=== PATIENT | female | born 1975 | race Caucasian/White ===

== ENCOUNTER → 2017-06-24 | Outpatient (CLI) | payer BC, OTHER ==
[~2017-06-24] MED LIST: ACHYD1T PO; BIRTH CONTROL; CYAN100021 PO; DEXL60CA PO; Docusate Sodium PO; FISH1CAP15 PO; Ibuprofen PO; LVT.088T PO; NEXIUM PO; SCR1T1 PO
--- NOTE | 2017-06-24 19:25 | Diagnostic Imaging Report ---
EXAMINATION: Digital mammogram bilateral screening. INDICATION: Screening. COMPARISON: This study was compared to the prior exam of 01/08/2012. At this time, there are no current complaints. The current study was also evaluated with a Computer Aided Detection (CAD) system. FINDINGS: The fibroglandular tissue in both breasts is heterogeneously dense. This does limit the sensitivity of this exam. Overall, there does not appear to have been any significant change when compared to the prior study. No primary or secondary sign of malignancy is noted. IMPRESSION: There is no radiographic evidence for malignancy. ACR BI-RADS Category 1: Negative. Result letter will be mailed to the patient. Note: At least 10% of breast cancer is not imaged by mammography. Dictated by: Dictated on workstation # [id number]
== END ==
LOC: RAD 08:47
PROVIDERS: ATTEND Obstetrics & Gynecology
DX: Z12.31 Encounter for screening mammogram for malignant neoplasm of breast (principal)
CPT/HCPCS: 77067

== ENCOUNTER 2018-12-24 11:22 | Emergency (ER) | payer BC, OTHER ==
[~2018-12-24] VITALS: Ht 175 cm; Wt 107.0 kg
[2018-12-24 11:44] LABS: BASOPHILS % (AUTO) 0 % (0-10); EOSINOPHILS # (AUTO) 0.1 10^3/uL (0.0-0.3); EOSINOPHILS % (AUTO) 1 % (0-10); HEMATOCRIT 39 % (35-52); HEMOGLOBIN 13.2 G/DL (11.5-16.0); LYMPHOCYTES # (AUTO) 2.4 X 10^3 (1.0-4.0); LYMPHOCYTES % (AUTO) 35 % (12-44); MEAN CORPUSCULAR HEMOGLOBIN 30 PG (25-34); MEAN CORPUSCULAR HGB CONC 34 G/DL (32-36); MEAN CORPUSCULAR VOLUME 87 FL (80-99); MONOCYTES # (AUTO) 0.4 X 10^3 (0.0-1.0); MONOCYTES % (AUTO) 6 % (0-12); NEUTROPHILS # (AUTO) 3.9 X 10^3 (1.8-7.8); NEUTROPHILS % (AUTO) 58 % (42-75); PLATELET COUNT 320 10^3/uL (130-400); RED CELL DISTRIBUTION WIDTH 13.2 % (10.0-14.5); WHITE BLOOD COUNT 6.8 10^3/uL (4.3-11.0)
[2018-12-24] MEDS ORDERED: ASPIRIN 81 MG CHEW (CHILDREN'S ASA) PO ONE (11:45)
[2018-12-24 11:57] LABS: INR 0.9 (0.8-1.4)
[2018-12-24] MEDS ORDERED: NITROGLYCERIN 0.4 MG SL TABS BTL 25'S SL PRN (12:00)
[2018-12-24 12:06] LABS: ALANINE AMINOTRANSFERASE 15 U/L (0-55); ALBUMIN 4.3 GM/DL (3.2-4.5); ALKALINE PHOSPHATASE 76 U/L (40-136); BILIRUBIN,TOTAL 0.5 MG/DL (0.1-1.0); BUN/CREATININE RATIO 16; CALCIUM 9.7 MG/DL (8.5-10.1); CARBON DIOXIDE 22 MMOL/L (21-32); CHLORIDE 107 MMOL/L (98-107); CREATININE SERUM 0.77 MG/DL (0.60-1.30); GFR ESTIMATED > 60; GLUCOSE 98 MG/DL (70-105); MAGNESIUM 1.8 MG/DL (1.6-2.4); POTASSIUM 3.7 MMOL/L (3.6-5.0); SODIUM 141 MMOL/L (135-145); TOTAL PROTEIN 7.2 GM/DL (6.4-8.2)
--- NOTE | 2018-12-24 12:06 | ED Chest Pain ---
General Chief Complaint: Chest Pain Stated Complaint: HIGH BP;CHEST TIGHTNESS Nursing Triage Note: PT AMBULATE TO ROOM 06 WITHOUT DIFFICULTY WITH C/O CHEST PAIN AND HYPTERTENSION STARTING TODAY. PT STATES TINGLING DOWN LEFT ARM. Nursing Sepsis Screen: No Definite Risk Source: patient Exam Limitations: no limitations History of Present Illness Date Seen by Provider: Dec 24, 2018 Time Seen by Provider: 12:04 Initial Comments To ER with reports of chest tightness in the left upper chest and high blood pressure. She wasn't feeling well at school today, had the school nurse check it and found her blood pressure to be in the 150s over 90s. She called her primary care provider who referred her to the emergency room. She also notes that [place] about [address] [place], typically walks to school and today was unusually short of breath with exertion. Strong family history of heart disease, father at the age of early 50s there's of heart troubles. She is a nonsmoker, nondiabetic, has normal cholesterol. Timing/Duration: changing over time Severity/Quality: moderate Location: central Radiation: no radiation Activities at Onset: none ASA po PULLMAN CONDUCTOR: No NTG SL PULLMAN CONDUCTOR: No Associated Symptoms: shortness of breath (with exertion) Allergies and Home Medications Allergies Coded Allergies: Penicillins (Verified Allergy, Severe, STOPPED BREATHING, 03/20/14) Home Medications Cyanocobalamin 1,000 Mcg/15 Ml Oral.susp, 1,000 MCG PO DAILY, (Reported) Hydrocodone Bit/Acetaminophen 1 Ea Tab, 1-2 EA PO Q4H PRN for PAIN Prescribed by: SANDHYA RAMOS on 03/23/14740 Levothyroxine Sodium 88 Mcg Tablet, 1 EACH PO DAILY, (Reported) [Docusate Sodium] 100 MG CAP, 100 MG PO BID Prescribed by: SANDHYA RAMOS on 03/23/14740 [Ibuprofen] 800 MG TAB, 800 MG PO Q6HR Prescribed by: SANDHYA RAMOS on 03/23/14740 [Nexium] , 30 MG PO DAILY, (Reported) Patient Home Medication List Home Medication List Reviewed: Yes Review of Systems Review of Systems Constitutional: see HPI EENTM: No Symptoms Reported Respiratory: No Symptoms Reported Cardiovascular: See HPI, Chest Pain Gastrointestinal: See HPI, Abdominal Pain Genitourinary: No Symptoms Reported Musculoskeletal: no symptoms reported Skin: no symptoms reported Psychiatric/Neurological: No Symptoms Reported Endocrine: No Symptoms Reported Hematologic/Lymphatic: No Symptoms Reported Past Ikrnkkz-Gqscra-Natlqt Hx Patient Social History Alcohol Use: Occasionally Uses Recreational Drug Use: No Smoking Status: Never a Smoker 2nd Hand Smoke Exposure: No Recent Foreign Travel: No Contact w/Someone Who Travel: No Recent Infectious Disease Expo: No Recent Hopitalizations: No Physical Abuse: No Sexual Abuse: No Mistreated: No Fear: No Immunizations Up To Date Date of Influenza Vaccine: Mar 13, 2014 Seasonal Allergies Seasonal Allergies: No Past Medical History Surgeries: Yes Appendectomy, Gallbladder Respiratory: No Cardiac: No Neurological: No Female Reproductive Disorders: Endometriosis Sexually Transmitted Disease: No Genitourinary: No Gastrointestinal: Yes Polyps, Hiatal Hernia Musculoskeletal: No Endocrine: Yes Hypothyroidsim HEENT: No Cancer: No Psychosocial: No Integumentary: No Blood Disorders: Yes (NOSE BLEEDS EASY) Physical Exam Vital Signs Vital Signs - First Documented 12/24/18 11:31 Temp 37.2 Pulse 86 Resp 18 B/P (MAP) 176/96 (122) Pulse Ox 96 O2 Delivery Room Air Capillary Refill : Less Than 3 Seconds Height, Weight, BMI Height: 5'10.00" Weight: 235lbs. oz. 106.831360gr; 34.00 BMI Method: General Appearance: No Apparent Distress, WD/WN, Other (Alert and oriented very pleasant) HEENT: PERRL/EOMI, TMs Normal Neck: Full Range of Motion, Normal Inspection Respiratory: Normal Breath Sounds, No Accessory Muscle Use, No Respiratory Distress Cardiovascular: Regular Rate, Rhythm, Normal Peripheral Pulses Gastrointestinal: Non Tender, Soft Neurologic/Psychiatric: Alert, Oriented x3 Skin: Normal Color, Warm/Dry Progress/Results/Core Measures Results/Orders Lab Results Laboratory Tests Test 12/24/18 11:36 12/24/18 13:31 Range/Units White Blood Count 6.8 4.3-11.0 10^3/uL Red Blood Count 4.44 4.35-5.85 10^6/uL Hemoglobin 13.2 11.5-16.0 G/DL Hematocrit 39 35-52 % Mean Corpuscular Volume 87 80-99 FL Mean Corpuscular Hemoglobin 30 25-34 PG Mean Corpuscular Hemoglobin Concent 34 32-36 G/DL Red Cell Distribution Width 13.2 10.0-14.5 % Platelet Count 320 130-400 10^3/uL Mean Platelet Volume 10.0 7.4-10.4 FL Neutrophils (%) (Auto) 58 42-75 % Lymphocytes (%) (Auto) 35 12-44 % Monocytes (%) (Auto) 6 0-12 % Eosinophils (%) (Auto) 1 0-10 % Basophils (%) (Auto) 0 0-10 % Neutrophils # (Auto) 3.9 1.8-7.8 X 10^3 Lymphocytes # (Auto) 2.4 1.0-4.0 X 10^3 Monocytes # (Auto) 0.4 0.0-1.0 X 10^3 Eosinophils # (Auto) 0.1 0.0-0.3 10^3/uL Basophils # (Auto) 0.0 0.0-0.1 10^3/uL Prothrombin Time 13.0 12.2-14.7 SEC INR Comment 0.9 0.8-1.4 Activated Partial Thromboplast Time 25 24-35 SEC D-Dimer 0.37 0.00-0.49 UG/ML Sodium Level 141 135-145 MMOL/L Potassium Level 3.7 3.6-5.0 MMOL/L Chloride Level 107 98-107 MMOL/L Carbon Dioxide Level 22 21-32 MMOL/L Anion Gap 12 5-14 MMOL/L Blood Urea Nitrogen 12 7-18 MG/DL Creatinine 0.77 0.60-1.30 MG/DL Estimat Glomerular Filtration Rate > 60 BUN/Creatinine Ratio 16 Glucose Level 98 70-105 MG/DL Calcium Level 9.7 8.5-10.1 MG/DL Corrected Calcium 9.5 8.5-10.1 MG/DL Magnesium Level 1.8 1.6-2.4 MG/DL Total Bilirubin 0.5 0.1-1.0 MG/DL Aspartate Amino Transf (AST/SGOT) 14 5-34 U/L Alanine Aminotransferase (ALT/SGPT) 15 0-55 U/L Alkaline Phosphatase 76 40-136 U/L Myoglobin 31.3 10.0-92.0 NG/ML Troponin I < 0.028 < 0.028 <0.028 NG/ML B-Type Natriuretic Peptide 40.3 <100.0 PG/ML Total Protein 7.2 6.4-8.2 GM/DL Albumin 4.3 3.2-4.5 GM/DL My Orders Orders - SHIRA WHITE ADMINISTRATIVE RESIDENT Cbc With Automated Diff (12/24/18 11:38) Magnesium (12/24/18 11:38) Chest 1 View, Ap/Pa Only (12/24/18 11:38) Ekg Tracing (12/24/18 11:38) Cardiac Profile 1 (12/24/18 11:38) Comprehensive Metabolic Panel (12/24/18 11:38) Myoglobin Serum (12/24/18 11:38) Protime With Inr (12/24/18 11:38) Partial Thromboplastin Time (12/24/18 11:38) O2 (12/24/18 11:38) Monitor-Rhythm Ecg Trace Only (12/24/18 11:38) Ed Iv/Invasive Line Start (12/24/18 11:38) BNP (12/24/18 11:38) Fibrin Degradation Products (12/24/18 11:38) Aspirin Chewable Tablet (Baby Aspirin Ch (12/24/18 11:45) Nitroglycerin 0.4 Mg Btl 25's (Nitrostat (12/24/18 12:00) Troponin I (12/24/18 13:15) Ekg Tracing (12/24/18 13:15) Medications Given in ED Current Medications Medications Dose Ordered Sig/Nils Route Start Time Stop Time Status Last Admin Dose Admin Aspirin 324 mg ONCE ONCE PO 12/24/18 11:45 12/24/18 11:46 DC 12/24/18 11:44 324 MG Nitroglycerin 1 TAB Q 5 MIN X 3 NEEDED PRN SL 12/24/18 12:00 12/24/18 15:01 DC 12/24/18 11:53 0.4 MG Vital Signs/I&O 12/24/18 12/24/18 12/24/18 11:31 11:36 14:59 Temp 37.2 Pulse 86 87 Resp 18 19 B/P (MAP) 176/96 (122) 148/85 Pulse Ox 96 100 O2 Delivery Room Air Room Air Room Air Blood Pressure Mean: 122 Departure Communication (Admissions) 1207-she was given aspirin and 1 sublingual nitroglycerin on arrival, the nitroglycerin did help alleviate the pressure on the left side of her chest. 1223-start score is 3, low risk. Impression Primary Impression: Chest pain Qualified Codes: R07.9 - Chest pain, unspecified Disposition: 01 HOME, SELF-CARE Condition: Stable Departure-Patient Inst. Decision time for Depature: 14:22 Referrals: HOA NICHOLS MD FACP [facility] Chelsey COELHO MD, BASHAR J MD TANG, WEN-CHOU MD (PCP/Family) Primary Care Physician Patient Instructions: Chest Pain (DC) Add. Discharge Instructions: 1. Call a public welfare worker your choosing on Thursday to make an appointment to be seen. I spoke with Dr. Coelho and he would be happy to see you. All discharge instructions reviewed with patient and/or family. Voiced understanding. Copy Copies To 1: Chelsey COELHO MD, PETER J APRN Dec 24, 2018 12:06
--- NOTE | 2018-12-24 12:11 | Diagnostic Imaging Report ---
INDICATION: Hypertension, chest tightness. COMPARISON: 05/05/2012. FINDINGS: The lungs are clear. The heart and vessels are normal. There is no effusion or pneumothorax. IMPRESSION: No acute-appearing abnormality. Dictated by: Dictated on workstation # [id number]
[2018-12-24 14:59] VITALS: BP 148/85
== END 2018-12-24 15:01 | disposition home or self-care (01) ==
LOC: EDUNIT# 11:22 → ER 11:23
DX: R07.9 Chest pain, unspecified (principal); I10 Essential (primary) hypertension; E03.9 Hypothyroidism, unspecified; Z88.0 Allergy status to penicillin; Z90.49 Acquired absence of other specified parts of digestive tract
CPT/HCPCS: 36415; 71045; 80053; 83735; 83874; 83880; 84484; 85025; 85379; 85610; 85730; 93005; 93041

== ENCOUNTER → 2018-12-30 | Outpatient (CLI) | payer BC ==
[~2018-12-30] MED LIST changes: +REGADENOSON 0.4 MG/5 ML SYR (LEXISCAN) IV ONE
[2018-12-30] MEDS: CATHETER FLUSH 10 ML SYR IV PRN ×3 (08:47→09:53)
[2018-12-30 09:38] VITALS: BP 141/82
--- NOTE | 2018-12-30 15:47 | Cardiology Stress Test Report ---
Stress Test Report Type of NM Stress Test: Test Type: LEXISCAN 0.4MG/5ML Date of Procedure/Referring: Date of Procedure: Dec 30, 2018 PCP Jeff Cornelius Aprn Admitting Physician Kera Alcaraz MD Indications: Chest pain Baseline Heart Rate: 66 Baseline Blood Pressure: Blood Pressure Systolic: 141 Blood Pressure Diastolic: 82 Baseline EKG: Baseline EKG: sinus rhythm Summary & Conclusion: Summary: The patient was brought to the stress lab after informed consent was taken. Stress test was performed according to the Lexiscan protocol. 0.4 mg of IV Lexiscan was given. Low-grade exercise was performed. Baseline EKG showed sinus rhythm at 66 BPM. Initial blood pressure was 141/82 mmHg. Maximum heart rate was 127 bpm and blood pressure 171/112 mmHg. Patient did not have any chest pain, arrhythmias or ST segment changes during the stress test. 10.71 mCi of Myoview were given for rest imaging and 30.1 mCi of Myoview given for stress imaging. Transient ischemic dilatation score 0.98, EF 62 percent. Normal wall motion. Normal myocardial perfusion imaging during rest and stress. Conclusion: Pharmacological stress test was negative for ischemia. Normal LV function with no wall motion abnormalities. Normal myocardial perfusion imaging during rest and stress. Chelsey PRICE MD Dec 30, 2018 15:47
== END ==
LOC: CARD 08:12
PROVIDERS: ATTEND Nurse Practitioner Family
DX: I34.0 Nonrheumatic mitral (valve) insufficiency (principal)
CPT/HCPCS: 78452; 93017; 93306

== ENCOUNTER 2020-04-09 05:34 | Outpatient (RCR) | payer BC ==
[~2020-04-09] VITALS: Ht 172.7 cm; Wt 111.9 kg
[~2020-04-09 05:34] MED LIST changes: -REGADENOSON 0.4 MG/5 ML SYR (LEXISCAN) IV ONE
[2020-04-09 09:33] LABS: BASOPHILS % (AUTO) 0 % (0-10); EOSINOPHILS # (AUTO) 0.1 10^3/uL (0.0-0.3); EOSINOPHILS % (AUTO) 1 % (0-10); HEMATOCRIT 37 % (35-52); HEMOGLOBIN 12.5 g/dL (11.5-16.0); LYMPHOCYTES # (AUTO) 4.1 10^3/uL (1.0-4.0); LYMPHOCYTES % (AUTO) 40 % (12-44); MEAN CORPUSCULAR HEMOGLOBIN 31 pg (25-34); MEAN CORPUSCULAR HGB CONC 34 g/dL (32-36); MEAN CORPUSCULAR VOLUME 92 fL (80-99); MEAN PLATELET VOLUME 10.3 fL (9.0-12.2); MONOCYTES # (AUTO) 0.6 10^3/uL (0.0-1.0); MONOCYTES % (AUTO) 6 % (0-12); NEUTROPHILS # (AUTO) 5.2 10^3/uL (1.8-7.8); NEUTROPHILS % (AUTO) 52 % (42-75); PLATELET COUNT 251 10^3/uL (130-400); WHITE BLOOD COUNT 10.1 10^3/uL (4.3-11.0)
[2020-04-09 09:50] LABS: BUN/CREATININE RATIO 21; CALCIUM 8.6 MG/DL (8.5-10.1); CARBON DIOXIDE 26 MMOL/L (21-32); CHLORIDE 110 MMOL/L (98-107); CREATININE SERUM 0.61 MG/DL (0.60-1.30); GFR ESTIMATED > 60; GLUCOSE 90 MG/DL (70-105); POTASSIUM 3.5 MMOL/L (3.6-5.0); SODIUM 142 MMOL/L (135-145)
[2020-04-09 10:48] VITALS: BP 130/81
[2020-04-09] MEDS ORDERED: NF-ESOM40C PO (10:56)
[2020-04-09] MEDS ORDERED: PROG100C11 PO (10:56)
[2020-04-09] MEDS ORDERED: CARV3.122 PO (10:56)
[2020-04-09] MEDS ORDERED: LIOT5TAB10 PO (10:56)
[2020-04-09] MEDS ORDERED: FLUT9.9S NS (10:56)
[2020-04-09] MEDS ORDERED: LEVO50TA6 PO (10:56)
[2020-04-09] MEDS ORDERED: CETI10TA49 PO (10:56)
[2020-04-09] MEDS ORDERED: BENA10TA66 PO (10:56)
[2020-04-09] MEDS ORDERED: CHOL200014 PO (10:56)
[2020-04-09] MEDS ORDERED: FOLI200T11 PO (10:56)
[2020-04-09] MEDS ORDERED: ESTR1PAT91 TD (10:56)
[2020-04-09] MEDS ORDERED: ASCO-262 PO (10:56)
[2020-04-10] MEDS ORDERED: ACHD5005 PO (12:33)
[2020-04-10] MEDS ORDERED: LEVO500T80 PO (12:33)
[2020-04-10] MEDS ORDERED: PRD20T PO (12:33)
== END 2020-04-09 10:56 | disposition home or self-care (01) ==
LOC: PREOP 05:34
PROVIDERS: ATTEND Otolaryngology Otolaryngology/Facial Plastic Surgery
DX: Z01.812 Encounter for preprocedural laboratory examination (principal); J32.9 Chronic sinusitis, unspecified; J34.2 Deviated nasal septum; J34.3 Hypertrophy of nasal turbinates; Z20.828 Contact with and (suspected) exposure to other viral communicable diseases
CPT/HCPCS: 80048; 85025; 87081; U0002; 36415; 87635

== ENCOUNTER 2020-04-10 08:37 | Day surgery (SDC) | payer BC ==
[~2020-04-10] VITALS: Ht 172.7 cm; Wt 111.9 kg
[2020-04-10] VITALS (11 sets, daily range): BP systolic 118–151; BP diastolic 64–99
[~2020-04-10 08:37] MED LIST changes: +ASCO-262 PO; +BENA10TA66 PO; +CARV3.122 PO; +CETI10TA49 PO; +CHOL200014 PO; +ESTR1PAT91 TD; +FLUT9.9S NS; +FOLI200T11 PO; +LEVO50TA6 PO; +LIOT5TAB10 PO; +NF-ESOM40C PO; +PROG100C11 PO
[2020-04-10] MEDS ORDERED: LEVOFLOXACIN 500 MG/100 ML IV 100 ML IV ONE (08:45)
[2020-04-10] MEDS ORDERED: COCAINE HCL 4% 2 ML SYR ONE (08:51)
[2020-04-10] MEDS ORDERED: BSS 15 ML ONE (08:51)
[2020-04-10] MEDS ORDERED: PHENYLEPHRINE 0.5% NASAL SPR (NEO-SYNEPHRINE) REG ONE (08:52)
[2020-04-10] MEDS ORDERED: LIDOCAINE/EPI 1%-1:100,000 (XYLOCAINE) 50 ML ONE (08:52)
--- NOTE | 2020-04-10 08:57 | Progress Note-Pre Operative ---
Pre-Operative Progress Note H&P Reviewed The H&P was reviewed, patient examined and no changes noted. Date Seen by Provider: Apr 10, 2020 Time Seen by Provider: 09:00 Date H&P Reviewed: Apr 10, 2020 Time H&P Reviewed: 09:00 Pre-Operative Diagnosis: Bilat Chronic Sinusitis, Dev Septum, Bilat Hyper of Inf Turbs JOSH RÍOS MD Apr 10, 2020 08:57
[2020-04-10] MEDS ORDERED: FAMOTIDINE 20MG/2ML IV (PEPCID) IV ONE (09:00)
[2020-04-10] MEDS ORDERED: ONDANSETRON 4 MG/2 ML (SDV) Z0FRAN IV ONE (09:00)
[2020-04-10] MEDS ORDERED: SCOPOLAMINE 1.5 MG (TRANSDERM-SCOP) PATCH TOP ONE (09:00)
[2020-04-10] MEDS ORDERED: proPOfol 200 MG/20 ML (DIPRIVAN) VIAL IV ONE (09:01)
[2020-04-10] MEDS ORDERED: NEOSTIGMINE 3 MG/3 ML VIAL ONE (09:01)
[2020-04-10] MEDS ORDERED: ROCURONIUM 10 MG/ML 5 ML SYRINGE IV ONE (09:01)
[2020-04-10] MEDS ORDERED: LIDOCAINE PF 2% 5 ML (XYLOCAINE) VIAL ONE (09:01)
[2020-04-10] MEDS ORDERED: fentaNYL INJECTION 100 MCG/2 ML AMP ONE (09:01)
[2020-04-10] MEDS ORDERED: SEVOFLURANE (ULTANE) 15 ML INHAL SOLN ONE ×5 (09:01→11:30)
[2020-04-10] MEDS ORDERED: GLYCOPYRROLATE 0.2 MG/ML (ROBINUL) 2 ML VIAL ONE (09:01)
[2020-04-10] MEDS ORDERED: ONDANSETRON 4 MG/2 ML (SDV) Z0FRAN ONE (09:01)
[2020-04-10] MEDS ORDERED: MIDAZOLAM 2 MG/2 ML (VERSED) VIAL ONE (09:02)
[2020-04-10] MEDS ORDERED: HYDROCORTISONE 100 MG/2 ML (Solu-CORTEF) VIAL ONE (10:04)
--- NOTE | 2020-04-10 10:05 | NUR ---
SOLUCORTEF 100MG IV GIVEN TO PT. IN OR PER DR. RÍOS.
[2020-04-10] MEDS ORDERED: HYDROmorphone 2 MG/ML VIAL (DILAUDID) ONE (10:33)
--- NOTE | 2020-04-10 11:21 | Progress Note-Post Operative ---
Post-Operative Progess Note Surgeon (s)/Help Desk Supervisor (s) Surgeon JOSH RÍOS MD Help Desk Supervisor n/a Pre-Operative Diagnosis Bilat Chronic Sinusitis, Dev Septum, Bilat Hyper of Inf Turbs Post-Operative Diagnosis same Post-Op Procedure Note Date of Procedure: Apr 10, 2020 Name of Procedure Performed: Bilat ESS, Nasal Septoplaty, Bilat Red of Inf Turbs Description & Findings Description and Findings: n/a Anesthesia Type get Estimated Blood Loss minimal Packing none. Specimen(s) collected/removed bilat Chronic sinus disease, nasal septum JOSH RÍOS MD Apr 10, 2020 11:21
[2020-04-10] MEDS ORDERED: D5 1/2 NS W/KCL 20 MEQ/L 1,000 ML IV SCH (11:30)
[2020-04-10] MEDS ORDERED: HYDROcodone/APAP 5 MG/325 MG (LORTAB) TAB PO PRN (11:30)
[2020-04-10] MEDS ORDERED: ACETAMINOPHEN 325 MG TABLET PO PRN (11:30)
[2020-04-10] MEDS ORDERED: predniSONE 20 MG TAB PO ONE (11:30)
[2020-04-10] MEDS ORDERED: PROMETHAZINE INJ 25 MG/ML (PHENERGAN) AMP IVP PRN (11:30)
[2020-04-10] MEDS ORDERED: HYDROmorphone 2 MG/ML VIAL (DILAUDID) IV ONE (11:45)
[2020-04-10] MEDS ORDERED: ONDANSETRON 4 MG/2 ML (SDV) Z0FRAN IVP PRN (11:45)
[2020-04-10] MEDS ORDERED: LACTATED RINGERS 1,000 ML IV SCH (11:45)
[2020-04-10] MEDS ORDERED: predniSONE 20 MG TAB ONE (12:26)
[2020-04-10] MEDS ORDERED: PRD20T PO (12:33)
[2020-04-10] MEDS ORDERED: ACHD5005 PO (12:33)
[2020-04-10] MEDS ORDERED: LEVO500T80 PO (12:33)
--- NOTE | 2020-04-10 14:50 | Anesthesia-General Post-Op ---
General Patient Condition Mental Status/LOC: Same as Preop Cardiovascular: Satisfactory Nausea/Vomiting: Absent Respiratory: Satisfactory Pain: Controlled Complications: Absent Post Op Complications Complications None Follow Up Care/Instructions Patient Instructions None needed. Anesthesia/Patient Condition Patient Condition Patient is doing well, no complaints, stable vital signs, no apparent adverse anesthesia problems. No complications reported per nursing. [place] [facility] [facility] [place] Yes MINA SERRANO CRNA Apr 10, 2020 14:50
== END 2020-04-10 13:35 | disposition home or self-care (01) ==
LOC: SDC 08:37
PROVIDERS: ATTEND Otolaryngology Otolaryngology/Facial Plastic Surgery
DX: J32.8 Other chronic sinusitis (principal); J34.2 Deviated nasal septum; J34.3 Hypertrophy of nasal turbinates; R09.81 Nasal congestion; I10 Essential (primary) hypertension; K21.9 Gastro-esophageal reflux disease without esophagitis; G47.33 Obstructive sleep apnea (adult) (pediatric); K44.9 Diaphragmatic hernia without obstruction or gangrene; Z79.899 Other long term (current) drug therapy; Z88.0 Allergy status to penicillin
CPT/HCPCS: 88305